=== PATIENT | male | born 2005 | race Caucasian/White ===

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

== ENCOUNTER 2023-03-03 13:45 | Emergency (ER) | payer OTHER, SELFPAY ==
[2023-03-03 14:02] VITALS: BP 135/80; PULSE 95; RESP 20; TEMP 36.9; O2SAT 99; BMI 21.8
[2023-03-03 14:06] VITALS: PULSE 88; O2SAT 99
--- NOTE | 2023-03-03 14:10 | CRLHL7_ITS ---
For Patients: As a result of the Century Cures Act, medical imaging exams and procedure reports are released immediately into your electronic medical record. You may view this report before your referring provider. If you have questions, please contact your health care provider. INDICATION: Left-sided chest pain COMPARISON: None. TECHNIQUE: PA and lateral 2 view chest radiograph. FINDINGS: The lungs are well expanded. No focal consolidations. No pulmonary edema. No pleural effusion. No pneumothorax. No pneumomediastinum. Normal cardiomediastinal silhouette. Bones: Normal for age. IMPRESSION: Lungs are clear. Normal chest radiographs. Dictated by Ruby Chavis MD @ 03/03/2023 3:11:48 PM (Electronically Signed)
--- NOTE | 2023-03-03 14:11 | ED.GENADULT ---
HPI - General Adult General Time Seen by Provider: 14:11 Date Seen: 03/03/23 Chief complaint: Chest Pain Stated complaint: Pain below ribs Time Seen by Provider: 03/03/23 13:49 History of Present Illness HPI narrative: This is a 17-year-old male who is previously healthy. He does have history of anxiety and a history of a ?benign heart murmur? as a child. He has no personal or family history of premature coronary disease. He has presents to the ER today with concern for chest pain involving his left anterior lower ribs. 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 He does not recall any specific lifting injury or any fall that would have caused chest pain. Yesterday afternoon after work he began to develop some achy burning pain in his left lower ribcage. It has been present off and on since then. It was fairly continuous yesterday afternoon and this morning but it is sleep pretty well without pain last night. There is no clear pattern to the pain. There is no position or movement that triggers it. It does not hurt to move his torso, breathe deeply, or move his arm. No other definite associated symptoms. He does have a little bit of ache in his left bicep that he attributes to muscular use from work. No palpitations. No shortness of breath. No cough. No fever. No pain radiating through to his back. No associated abdominal pain. No nausea. No swelling in his legs. No recent travel. He does note that his parents are currently out of town on a trip to [facility]. He had no on else ask about his symptoms so he Google it. When he discovered potential heart attack on Google he decided to come to the ER for evaluation. Related Data Home Medications Medication Instructions Recorded Confirmed No Known Home Medications 03/03/23 03/03/23 Allergies Allergy/AdvReac Type Severity Reaction Status Date / Time amoxicillin Allergy Verified 09/30/22 11:51 PFSH PFS Social History Smoking Status: Never smoker Do you use any of these nicotine containing products: None Second hand tobacco smoke exposure: No How often do you have a drink containing alcohol: 2-4 times a month How many standard drinks containing alcohol do you have on a typical day: 10 or more How often do you have six or more drinks on one occasion: Weekly AUDIT-C Alcohol total score: 9 Non-prescribed substance use: marijuana (any form) service: No Exam Narrative: Exam Narrative: Constitutional: Appears well-developed and well-nourished. Alert. Conversant. Non toxic. HENT: Head: Atraumatic. Nose: Nose normal. Mouth/Throat: Oral mucosa is clear and moist. no trismus. Pharynx normal. Tonsils symmetric. No tonsillar enlargement, erythema, or exudate. Eyes: Conjunctivae normal. EOM normal. Pupils equal, round, and reactive to light. No scleral icterus. Neck: Normal range of motion. Neck supple. No tracheal deviation present. No JVD Cardiovascular: Normal rate, regular rhythm. No gallop. No friction rub. No murmur heard. Symmetric radial and PT/DP artery pulses Pulmonary/Chest: Effort normal. No stridor. No respiratory distress. No wheezes. No rales. No rhonchi . No reproducible tenderness. No ecchymosis. No rash. No shingles. Abdominal: Soft. Bowel sounds normal. No distension. No mass. No tenderness. No rebound. No guarding. Musculoskeletal: RUE: Normal range of motion. No tenderness. No deformity LUE: Normal range of motion. No tenderness. No deformity RLE: Normal range of motion. No edema. No tenderness. No deformity LLE: Normal range of motion. No edema. No tenderness. No deformity Lymph: No cervical adenopathy. Neurological: Alert and oriented to person, place, and time. Normal strength. CN II-VII intact. No sensory deficit. GCS eye subscore is 4. GCS verbal subscore is 5. GCS motor subscore is 6. Normal coordination Skin: Skin is warm and dry. No rash noted. No pallor. Normal capillary refill. Psychiatric: Normal mood. Normal affect. Const: Vital Signs, click to edit/add: Vital Signs - 24 hr 03/03/23 14:02 03/03/23 14:06 03/03/23 14:15 Temperature 98.5 F Pulse Rate 88 89 Pulse Rate [Pulse Oximeter] 95 Respiratory Rate 20 Blood Pressure Blood Pressure [Ri ght Upper Arm] 135/80 Pulse Oximetry 99 99 99 Oxygen Delivery Me thod Room Air 03/03/23 14:17 Temperature Pulse Rate 68 Pulse Rate [Pulse Oximeter] Respiratory Rate Blood Pressure 146/87 H Blood Pressure [Ri ght Upper Arm] Pulse Oximetry 100 Oxygen Delivery Me thod Course Vital Signs Vital signs: Initial Vital Signs Temperature 98.5 F 03/03/23 14:02 Temperature Source Temporal Artery Scan 03/03/23 14:02 Pulse Rate 95 03/03/23 14:02 Respiratory Rate 20 03/03/23 14:02 Blood Pressure 135/80 03/03/23 14:02 Blood Pressure Mean 98 03/03/23 14:02 Blood Pressure Position Sitting 03/03/23 14:02 Pulse Oximetry 99 03/03/23 14:02 Oxygen Delivery Method Room Air 03/03/23 14:02 Vital Signs Temperature 98.5 F 03/03/23 14:02 Pulse Rate 95 03/03/23 14:02 Respiratory Rate 20 03/03/23 14:02 Blood Pressure 135/80 03/03/23 14:02 Pulse Oximetry 99 03/03/23 14:02 Oxygen Delivery Method Room Air 03/03/23 14:02 Temperature 98.5 F 03/03/23 14:02 Pulse Rate 68 03/03/23 14:17 Respiratory Rate 20 03/03/23 14:02 Blood Pressure 146/87 H 03/03/23 14:17 Pulse Oximetry 100 03/03/23 14:17 Oxygen Delivery Method Room Air 03/03/23 14:02 Medical Decision Making MDM Narrative Medical decision making narrative: This patient presents to the ER today for evaluation of left anterolateral lower rib/chest pain. Differential was broad. No evidence of palpitations, syncope or other cardiac dysrhythmia. We considered possible ACS, however workup with EKG and troponin is negative. HEART score is 0. Given time since onset of symptoms, I do not think the patient needs to be admitted for further sets of enzymes. EKG shows no evidence for pericarditis. Clinical presentation not suggestive of myocarditis. Chest x-ray shows no evidence for pneumonia, pneumothorax, pulmonary edema, pleural effusion, rib fracture, cardiomegaly. Mediastinum is normal on the x-ray. The patient has no ripping or tearing pain through to the back and has symmetric pulses on exam, no other acute neuro findings so I doubt aortic dissection. Risk of radiation and contrast exposure would outweigh the benefit of CT angiogram. We considered PE for this patient. He is low risk by PERC. Will hold off on D-dimer testing. No wheezing or bronchospasm to suggest COPD/asthma. No signs of chest wall cellulitis, shingles, injury. Differential would include costochondritis, possible esophageal reflux. Neck may be some component of anxiety amplifying his pain as well. With reasonable clinical confidence, I think the patient is safe for outpatient follow up. Discussed return precautions. Questions answered. Patient voices comfort with the plan. Lab Data Labs: Lab Results 03/03/23 Range/Units 14:32 WBC 5.57 (4.50-11.00) K/uL RBC 5.33 (4.30-5.90) m/uL Hgb 14.6 (13.5-17.5) gm/dL Hct 43.0 (37.0-53.0) % MCV 81 (80-100) fL MCH 27 (26-34) pg MCHC 34 (32-36) gm/dL RDW Coeff of Scot 12.6 (11.5-15.5) % Plt Count 250 (140-440) K/uL Neut % (Auto) 66.8 (42.0-72.0) % Lymph % (Auto) 25.0 (20-44) % [place] % (Auto) 5.7 (0.0-11.0) % Eos % (Auto) 2.0 (0.0-7.0) % Baso % (Auto) 0.5 (0.0-3.0) % Neut # (Auto) 3.72 (1.7-7.0) K/uL Lymph # (Auto) 1.39 (0.90-2.90) K/uL [place] # (Auto) 0.30 (0.00-0.90) K/UL Eos # (Auto) 0.11 (0.00-0.50) K/uL Baso # (Auto) 0.03 (0.00-0.30) K/uL Abs Immat Gran (auto) 0.00 (0.00-0.30) K/uL Imm/Tot Granulo (auto) 0.0 % Sodium 139 (135-149) mmol/L Potassium 4.2 (3.6-5.1) mmol/L Chloride 101 (96-114) mmol/L Carbon Dioxide 26 (20-32) mmol/L Anion Gap 12 (7-15) mEq/L BUN 15 (5-24) mg/dL Creatinine 0.8 (0.6-1.2) mg/dL Estimated Creat Clear 157.22 Estimated GFR 131 ml/min Glucose 122 H (60-115) mg/dL Calcium 10.2 (8.7-10.8) mg/dL Troponin I < 0.01 L (0.01-0.04) ng/mL Imaging Data Chest x-ray: Attestation: I have reviewed the pertinent imaging results. My impression: No acute pneumonia, pulmonary edema, pleural effusion, pneumothorax. No visible rib fracture. Radiologist's impression: FINDINGS: The lungs are well expanded. No focal consolidations. No pulmonary edema. No pleural effusion. No pneumothorax. No pneumomediastinum. Normal cardiomediastinal silhouette. Bones: Normal for age. IMPRESSION: Lungs are clear. Normal chest radiographs. Discharge Plan Discharge Clinical Impression: Chest pain Patient Disposition: Home, Self-Care Condition: Stable Instructions: Chest Pain (DC) Additional Instructions: As we discussed, so far your workup looks reassuring. Please monitor closely. come back to the ER right away if you have any problems, especially if you have worsening pain, shortness of breath, fever, lightheadedness. Prescriptions: No Action No Known Home Medications Follow Up/Referrals: Arcelia Metcalf MD [Primary Care Provider] - Stand Alone Forms: [employer] Info Instructions
[2023-03-03 14:15] VITALS: PULSE 89; O2SAT 99
[2023-03-03 14:17] VITALS: BP 146/87; PULSE 68; O2SAT 100
[2023-03-03] MEDS: ASPIRIN 81 MG TAB.CHEW 162 MG PO (14:24)
[2023-03-03 14:44] LABS: Basophils Absolute Auto 0.03 K/uL (0.00-0.30); Basophils Percent Auto 0.5 % (0.0-3.0); Eosinophils Absolute Auto 0.11 K/uL (0.00-0.50); Hemoglobin* 14.6 gm/dL (13.5-17.5); Lymphocytes Absolute Auto 1.39 K/uL (0.90-2.90); Mean Corpuscular HGB Conc 34 gm/dL (32-36); Mean Corpuscular Hemoglobin 27 pg (26-34); Mean Corpuscular Volume 81 fL (80-100); Monocytes Percent Auto 5.7 % (0.0-11.0); Neutrophils Absolute Auto 3.72 K/uL (1.7-7.0); Neutrophils Percent Auto 66.8 % (42.0-72.0); Platelet Count* 250 K/uL (140-440); RDW Coefficient of Variation % 12.6 % (11.5-15.5); Red Blood Count 5.33 m/uL (4.30-5.90); White Blood Count* 5.57 K/uL (4.50-11.00)
[2023-03-03 14:45] LABS: Slide Review Reflex No
[2023-03-03 14:58] LABS: Chloride* 101 mmol/L (96-114); Potassium* 4.2 mmol/L (3.6-5.1); Sodium* 139 mmol/L (135-149)
[2023-03-03 15:01] LABS: Anion Gap 12 mEq/L (7-15); Carbon Dioxide* 26 mmol/L (20-32); Creatinine* 0.8 mg/dL (0.6-1.2); Est. Creatinine Clearance* 157.22; Estimated Glomerular Filt Rate 131 ml/min
[2023-03-03 15:02] LABS: Blood Urea Nitrogen* 15 mg/dL (5-24); Calcium* 10.2 mg/dL (8.7-10.8); Glucose* 122 mg/dL (60-115)
[2023-03-03 15:25] LABS: Troponin I* < 0.01 ng/mL (0.01-0.04)
== END 2023-03-03 15:51 | disposition home or self-care (01) ==
PROVIDERS: Emergency Provider Emergency Medicine; PCP Family Medicine
DX: R07.9 Chest pain, unspecified (principal)
CPT/HCPCS: 36415; 71046; 80048; 84484; 85025; 93005; 99283; 99284; 99285; A9270